=== PATIENT | female | born 1975 | race Caucasian/White ===

== ENCOUNTER 2017-07-22 18:52 | Observation (INO) ==
[2017-07-22 20:10] LABS: Bilirubin,Urine Small (Negative); Blood,Urine Negative (Negative); Clarity,Urine Cloudy (Clear); Color,Urine Dark Yellow (Yellow); Glucose,Urine (UA) Normal (Normal); Ketones,Urine Negative (Negative); Leukocyte Esterase,Urine Negative (Negative); Nitrite,Urine Negative (Negative); PH,Urine 5.5 pH Units (5.0-8.0); Protein,Urine Negative (Neg-Trace); Specific Gravity,Urine 1.021 (1.010-1.025); Urobilinogen,Urine Normal (Normal)
--- NOTE | 2017-07-22 20:10 | Emergency Department Note ---
Disposition Clinical Impression: Suicidal ideation, Illicit drug use, History of seizure Disposition: Admitted As Inpatient Condition: Good Referrals: NONE,PCP [Primary Care Provider] - Forms: ED Satisfaction Letter Psych HPI - General Chief Complaint: ED Psychiatric Symptoms Stated Complaint: psych eval,SI, "thrush" Time Seen by Provider: 07/22/17 19:42 Source: patient Mode of arrival: ambulatory Limitations: no limitations Nursing Notes Reviewed: Yes Vital Signs Reviewed: Yes - History of Present Illness HPI Narrative: Patient presents today for evaluation of suicidal thoughts. Patient states she has been having worsening suicidal thoughts. Patient states she was sitting on the railroad tracks itching for a train. She states that she was going to try to find a gun to "blow her brains out". Patient states that she has no concept of what time it is or when the last time she ate or when the last time she used heroin was. - Related Data Home Medications Medication Instructions Recorded Confirmed Ibuprofen 05/21/15 05/21/15 Gabapentin [Neurontin] 08/12/15 Quetiapine Fumarate [Seroquel] 08/12/15 diazePAM [Valium] 08/12/15 Effexor 10/07/15 Remeron 10/07/15 Vivitrol 10/07/15 10/07/15 Previous Rx's Medication Instructions Recorded Hydrocodone/Acetaminophen [[place] 1 each PO Q4H PRN #10 tablet 05/21/15 5-325 Tablet] Acyclovir [Zovirax] 800 mg PO 5XD #35 tablet 08/12/15 Hydrocodone/Acetaminophen [[place] 1 each PO Q4H PRN #10 tablet 08/12/15 5-325 Tablet] Mupirocin [Bactroban Oint] 1 appl TP BID #30 g 08/12/15 Triamcinolone Acet 0.1% CRM 1 appl TP BID #30 g 08/12/15 [Kenalog] predniSONE [Prednisone] 40 mg PO DAILY #10 tablet 08/12/15 Meclofenamate Sodium 50 mg PO QID PRN #20 capsule 10/07/15 Amoxicillin/Clavulanate [Augmentin] 875 mg PO BIDWM #14 tablet 05/28/16 Sulfamethoxazole/Trimeth DS 1 each PO BID #14 tablet 05/28/16 [Bactrim DS] Doxycycline 100 mg PO DAILY #10 capsule 10/26/16 cephALEXin [Keflex] 500 mg PO BID #20 capsule 10/26/16 Malathion [Ovide] 59 ml TP ONCE #59 ml 01/28/17 Malathion [Ovide] 59 ml TP ONCE #59 ml 02/07/17 hydrOXYzine pamoate [HydrOXYzine 25 mg PO TID PRN #30 capsule 02/07/17 Pamoate] predniSONE [PredniSONE] 10 - 60 mg PO DAILY #42 tablet 02/07/17 Allergies Allergy/AdvReac Type Severity Reaction Status Date / Time Opioids - Morphine Analogues Allergy Rash Verified 05/04/17 19:24 All systems ED: reviewed and negative except as stated. Constitutional: Denies: fever, chills Cardiovascular: Denies: chest pain Respiratory: Denies: cough, dyspnea Gastrointestinal: Denies: abdominal pain, nausea, vomiting Genitourinary: Denies: urgency, dysuria Neurological: Denies: headache Psychiatric: Reports: anxiety, depression, suicidal thoughts Past Medical History - Past Medical History Medical history: Reports: non-contributory Psychiatric history: Reports: anxiety, bipolar, depression, panic disorder ANIME ARTIST history: Reports: no ANIME ARTIST history - Social History Smoking Status: Current every day smoker Smokeless Tobacco Status: No Alcohol use: Reports: none Drug use: Reports: none Physical Exam General appearance: NAD, conversant Eyes: anicteric sclerae, moist conjunctivae; no lid-lag; PERRL HENT: Atraumatic; oropharynx clear with moist mucous membranes Neck: Normal appearance; Trachea midline Chest: Symmetrical chest rise; No respiratory distress Extremities: No peripheral edema or extremity tenderness Skin: Normal temperature, turgor and texture; no rash, ulcers or subcutaneous nodules Psych: Anxious Neuro: Awake and alert - General Limitations: no limitations General appearance: alert, in no apparent distress Course - Reevaluation(s) Reevaluation #1: Discussed with the patient who states that she does not have any signs or symptoms of withdrawal. She does not believe she is relapsed long enough to go through withdrawal symptoms. She normally feels with seizures happening and does not feel this way at this time. Patient is resting comfortably in bed. - Consultations Consultation #1: 1A evaluated the patient at bedside and discussed with psychiatry. The patient will need further evaluation with in the hospital secondary to the patient's recent drug use with inability to tell us what she took or when. She states she does have a seizure history from previous trauma. Last seizure was 2 days ago. Consultation #2: Discussed with hospitalist for admission for detox and observation prior to 1A admission. This time the patient is not withdrawing and they recommend further discussion with psychiatry for psychiatric admission as her primary complaint suicidal ideation and she does not have any signs of withdrawal at this time. Consultation #3: Discussed with psychiatrist, he feels patient needs medical admission because we do not know enough about her overall drug use as well as seizure history and status to know that she can be in an unmonitored bed without an IV on the psychiatric floor. We discussed the case with the hospitalist who accepts the patient for admission. Vital Signs Temperature 98.5 F 07/22/17 18:54 Pulse Rate 83 07/22/17 18:54 Respiratory Rate 18 07/22/17 18:54 Blood Pressure 110/57 07/22/17 18:54 O2 Sat by Pulse Oximetry 97 07/22/17 18:54 Temperature 98.5 F 07/22/17 18:54 Pulse Rate 83 07/22/17 18:54 Respiratory Rate 18 07/22/17 18:54 Blood Pressure 110/57 07/22/17 18:54 O2 Sat by Pulse Oximetry 97 07/22/17 18:54 Oxygen Delivery Oxygen Delivery Room Air Psych - Lab Data Result diagrams: 07/22/17 20:20 07/22/17 20:20 Lab Results 07/22/17 07/22/17 07/22/17 Range/Units 19:29 19:29 19:29 WBC (4.3-11.1) K/mcL RBC (3.82-4.97) M/mcL Hgb (11.5-15.4) g/dL Hct (35.3-44.9) % MCV (83.0-100.0) fL MCH (28.0-33.3) pg MCHC (31.6-35.5) g/dL RDW (11.5-14.5) % Plt Count (140-400) K/mcL MPV (9.4-12.4) fL Immature Gran % (0-4) % Seg Neutrophils % % Lymphocytes % % Monocytes % % Eosinophils % % Basophils % % Neutrophils # (1.6-8.9) K/mcL Lymphocytes # (0.6-4.6) K/mcL Monocytes # (0.0-1.3) K/mcL Eosinophils # (0.0-0.6) K/mcL Basophils # (0.0-0.2) K/mcL Sodium (136-145) mEq/L Potassium (3.5-5.1) mEq/L Chloride (98-107) mEq/L Carbon Dioxide (23-29) mEq/L BUN (6-20) mg/dL Creatinine (0.60-1.20) mg/dL Est GFR ( Amer) (> 60) Est GFR (Non-Af Amer) (> 60) BUN/Creatinine Ratio (6-26) Glucose (70-105) mg/dL Calculated Osmolality (280-300) Calcium (8.6-10.3) mg/dL Total Bilirubin (0.3-1.0) mg/dL Direct Bilirubin (0.0-0.2) mg/dL Indirect Bilirubin (0.0-1.2) mg/dL AST (13-39) Units/L ALT (7-52) Units/L Alkaline Phosphatase (34-104) Units/L Serum Total Protein (6.4-8.9) g/dL Albumin (3.5-5.7) g/dL Globulin (2.4-3.5) g/dL Albumin/Globulin Ratio (1.1-2.2) TSH (0.340-5.600) mcIU/mL Urine Color Dark Yellow (Yellow) Urine Clarity Cloudy A (Clear) Urine pH 5.5 (5.0-8.0) pH Units Ur Specific [place] 1.021 (1.010-1.025) Urine Protein Negative (Neg-Trace) mg/dL Urine Glucose (UA) Normal (Normal) mg/dL Urine Ketones Negative (Negative) mg/dL Urine Blood Negative (Negative) Urine Nitrite Negative (Negative) Urine Bilirubin Small H (Negative) Urine Urobilinogen Normal (Normal) mg/dL Ur Leukocyte Esterase Negative (Negative) Urine Microscopic RBC 0-3 (0-3) per hpf Urine Microscopic WBC 3-5 H (0-3) per hpf Ur Squamous Epith Cells Many H (None-Few) per lpf Urine Bacteria None Seen (None-Few) per hpf Hyaline Casts None Seen (None-Few) per lpf Urine Mucus Few (Few) Urine Test Negative (Negative) Salicylates (15.0-30.0) mg/dL Urine Opiates Screen Positive H (Myssan=108) ng/mL Acetaminophen (10-30) mcg/mL Ur Barbiturates Screen Negative (Mncmza=910) ng/mL Ur Phencyclidine Scrn Negative (Cutoff=25) ng/mL Ur Amphetamines Screen Positive H (Sdvcrm=2261) ng/mL U Benzodiazepines Scrn Positive H (Yfekev=642) ng/mL Urine Cocaine Screen Positive H (Cutoff= 300) ng/mL U Marijuana (THC) Screen Positive H (Cutoff = 50) ng/mL Ethyl Alcohol (0-10) mg/dL 07/22/17 07/22/17 Range/Units 20:20 20:20 WBC 7.4 (4.3-11.1) K/mcL RBC 4.65 (3.82-4.97) M/mcL Hgb 14.2 (11.5-15.4) g/dL Hct 42.0 (35.3-44.9) % MCV 90.3 (83.0-100.0) fL MCH 30.5 (28.0-33.3) pg MCHC 33.8 (31.6-35.5) g/dL RDW 13.7 (11.5-14.5) % Plt Count 183 (140-400) K/mcL MPV 10.6 (9.4-12.4) fL Immature Gran % 0.1 (0-4) % Seg Neutrophils % 47.3 % Lymphocytes % 39.5 % Monocytes % 9.6 % Eosinophils % 3.2 % Basophils % 0.3 % Neutrophils # 3.5 (1.6-8.9) K/mcL Lymphocytes # 2.9 (0.6-4.6) K/mcL Monocytes # 0.7 (0.0-1.3) K/mcL Eosinophils # 0.2 (0.0-0.6) K/mcL Basophils # 0.0 (0.0-0.2) K/mcL Sodium 136 (136-145) mEq/L Potassium 3.4 L (3.5-5.1) mEq/L Chloride 104 (98-107) mEq/L Carbon Dioxide 26 (23-29) mEq/L BUN 7 (6-20) mg/dL Creatinine 0.58 L (0.60-1.20) mg/dL Est GFR ( Amer) > 60 (> 60) Est GFR (Non-Af Amer) > 60 (> 60) BUN/Creatinine Ratio 12 (6-26) Glucose 95 (70-105) mg/dL Calculated Osmolality 280 (280-300) Calcium 8.8 (8.6-10.3) mg/dL Total Bilirubin 0.7 (0.3-1.0) mg/dL Direct Bilirubin 0.2 (0.0-0.2) mg/dL Indirect Bilirubin 0.5 (0.0-1.2) mg/dL AST 33 (13-39) Units/L ALT 17 (7-52) Units/L Alkaline Phosphatase 49 (34-104) Units/L Serum Total Protein 7.4 (6.4-8.9) g/dL Albumin 3.9 (3.5-5.7) g/dL Globulin 3.5 (2.4-3.5) g/dL Albumin/Globulin Ratio 1.1 (1.1-2.2) TSH 1.195 (0.340-5.600) mcIU/mL Urine Color (Yellow) Urine Clarity (Clear) Urine pH (5.0-8.0) pH Units Ur Specific [place] (1.010-1.025) Urine Protein (Neg-Trace) mg/dL Urine Glucose (UA) (Normal) mg/dL Urine Ketones (Negative) mg/dL Urine Blood (Negative) Urine Nitrite (Negative) Urine Bilirubin (Negative) Urine Urobilinogen (Normal) mg/dL Ur Leukocyte Esterase (Negative) Urine Microscopic RBC (0-3) per hpf Urine Microscopic WBC (0-3) per hpf Ur Squamous Epith Cells (None-Few) per lpf Urine Bacteria (None-Few) per hpf Hyaline Casts (None-Few) per lpf Urine Mucus (Few) Urine Test (Negative) Salicylates < 5.0 L (15.0-30.0) mg/dL Urine Opiates Screen (Zbaxpt=447) ng/mL Acetaminophen < 1.0 L (10-30) mcg/mL Ur Barbiturates Screen (Gtwfjy=677) ng/mL Ur Phencyclidine Scrn (Cutoff=25) ng/mL Ur Amphetamines Screen (Gexajz=1982) ng/mL U Benzodiazepines Scrn (Ngkqbu=575) ng/mL Urine Cocaine Screen (Cutoff= 300) ng/mL U Marijuana (THC) Screen (Cutoff = 50) ng/mL Ethyl Alcohol < 10 (0-10) mg/dL Psychiatric Medical Clearance - Medical Clearance Checklist Medical History: Abscess of skin or subcutaneous tissue (Inactive) Abscess of skin or subcutaneous tissue (Inactive) Cellulitis (Inactive) Dental caries (Inactive) Dermatitis due to plants, including poison francesca, sumac, and oak (Inactive) Facial cellulitis (Inactive) Head lice (Inactive) Head lice (Inactive) Herpes zoster (Inactive) Lice (Inactive) Opiate overdose (Inactive) Pelvic pain (Inactive) Seborrheic dermatitis (Inactive) Substance abuse (Inactive) Toothache (Inactive) No Social History Section defined Current Vitals: Last Vital Signs Temp 98.5 F 07/22/17 18:54 Pulse 83 07/22/17 18:54 Resp 18 07/22/17 18:54 BP 110/57 07/22/17 18:54 Pulse Ox 97 07/22/17 18:54 Psychiatric Lab Panel: Drug Levels and Toxicity 07/22/17 07/22/17 19:29 20:20 Urine Opiates Screen Positive H Acetaminophen < 1.0 L Ur Barbiturates Screen Negative Ur Phencyclidine Scrn Negative Ur Amphetamines Screen Positive H U Benzodiazepines Scrn Positive H Urine Cocaine Screen Positive H U Marijuana (THC) Screen Positive H Ethyl Alcohol < 10 Abnormal Labs: Abnormal lab results Potassium 3.4 mEq/L (3.5-5.1) L 07/22/17 20:20 Creatinine 0.58 mg/dL (0.60-1.20) L 07/22/17 20:20 Urine Clarity Cloudy (Clear) A 07/22/17 19:29 Urine Bilirubin Small (Negative) H 07/22/17 19:29 Urine Microscopic WBC 3-5 per hpf (0-3) H 07/22/17 19:29 Ur Squamous Epith Cells Many per lpf (None-Few) H 07/22/17 19:29 Salicylates < 5.0 mg/dL (15.0-30.0) L 07/22/17 20:20 Urine Opiates Screen Positive ng/mL (Avtlon=148) H 07/22/17 19:29 Acetaminophen < 1.0 mcg/mL (10-30) L 07/22/17 20:20 Ur Amphetamines Screen Positive ng/mL (Esathp=4233) H 07/22/17 19:29 U Benzodiazepines Scrn Positive ng/mL (Wzzqov=603) H 07/22/17 19:29 Urine Cocaine Screen Positive ng/mL (Cutoff= 300) H 07/22/17 19:29 U Marijuana (THC) Screen Positive ng/mL (Cutoff = 50) H 07/22/17 19:29 Statement of Medical Clearance: I have evaluated the patient, reviewed diagnostic information, and certify that the patient's medical condition is sufficiently stable that transfer to the psychiatric unit does not pose a significant risk of deterioration. Attestation Statement - Attestation Attestation: I, Marco A Raymond MD, personally evaluated this patient and discussed their management with the resident physician. I reviewed the resident's note and agree with the documented findings, medical decision making, and plan of care. 42-year-old female presents to the emergency department with a complaint of suicidal ideation. Patient has a history of psychiatric issues. Patient is very anxious and tearful. He states that she went to her ex-'s to get a gun and blow her brains out because she could not find a rope to hang herself. She is actively suicidal and states that she just wants to . She also has a history of active drug abuse and injects heroin primarily. She also admits to smoking crack cocaine but states it is not her drug of choice. She admits to having some visual hallucinations. On examination the patient is well-developed well-nourished female in no acute distress. She is very anxious and tearful. There is no cyanosis or diaphoresis. Head is atraumatic. Breath sounds are clear and equal bilaterally. Heart regular rate and rhythm. Abdomen soft and nontender with normal bowel sounds. No gross focal neurological deficits. Labs reviewed. Tox screen positive for opiates, cocaine, amphetamines, benzodiazepines, and marijuana. Alcohol negative. [address] psychiatry service was consulted to evaluate patient in the emergency department. Patient was seen and evaluated by the psychiatry service and the psychiatrist recommended medical admission due to the patient's multiple drugs in her system and concern for withdrawal and seizures as she apparently has a history of seizures. The hospitalist, Dr. Smith, was consulted and accepted admission of the patient.
[2017-07-22 20:13] LABS: Amphetamine Screen,Urine Positive ng/mL (Cutoff=1000); Bacteria,Urine None Seen per hpf (None-Few); Barbiturate Screen,Urine Negative ng/mL (Cutoff=200); Benzodiazepines Screen,Urine Positive ng/mL (Cutoff=200); Cannabinoid Screen,Urine Positive ng/mL (Cutoff = 50); Cocaine Screen,Urine Positive ng/mL (Cutoff= 300); Opiate Screen,Urine Positive ng/mL (Cutoff=300); Phencyclidine Screen,Urine Negative ng/mL (Cutoff=25); Squamous Epithelial Cell,Urine Many per lpf (None-Few)
[2017-07-22 20:25] LABS: Hyaline Casts,Urine None Seen per lpf (None-Few)
[2017-07-22 20:26] LABS: Mucus,Urine Few (Few); RBC,Urine 0-3 per hpf (0-3)
[2017-07-22 20:34] LABS: Basophils % 0.3 %; Eosinophils # 0.2 K/mcL (0.0-0.6); Eosinophils % 3.2 %; Hemoglobin 14.2 g/dL (11.5-15.4); Immature Granulocytes % 0.1 % (0-4); Lymphocytes # 2.9 K/mcL (0.6-4.6); Lymphocytes % 39.5 %; Mean Corpuscular HGB Conc 33.8 g/dL (31.6-35.5); Mean Corpuscular Hemoglobin 30.5 pg (28.0-33.3); Mean Corpuscular Volume 90.3 fL (83.0-100.0); Mean Platelet Volume 10.6 fL (9.4-12.4); Monocytes # 0.7 K/mcL (0.0-1.3); Monocytes % 9.6 %; Neutrophils # 3.5 K/mcL (1.6-8.9); Platelet Count 183 K/mcL (140-400); Red Blood Count 4.65 M/mcL (3.82-4.97); Red Cell Distribution Width 13.7 % (11.5-14.5); Segmented Neutrophils % 47.3 %
[2017-07-22 20:49] LABS: Alanine Aminotransferase 17 Units/L (7-52); Albumin 3.9 g/dL (3.5-5.7); Albumin/Globulin Ratio 1.1 (1.1-2.2); Alkaline Phosphatase 49 Units/L (34-104); Aspartate Amino Transferase 33 Units/L (13-39); BUN/Creatinine Ratio 12 (6-26); Bilirubin,Direct 0.2 mg/dL (0.0-0.2); Bilirubin,Indirect 0.5 mg/dL (0.0-1.2); Bilirubin,Total 0.7 mg/dL (0.3-1.0); Blood Urea Nitrogen 7 mg/dL (6-20); Calcium 8.8 mg/dL (8.6-10.3); Carbon Dioxide 26 mEq/L (23-29); Chloride 104 mEq/L (98-107); Globulin 3.5 g/dL (2.4-3.5); Glucose 95 mg/dL (70-105); Osmolality,Calculated 280 (280-300); Potassium 3.4 mEq/L (3.5-5.1); Sodium 136 mEq/L (136-145); Total Protein 7.4 g/dL (6.4-8.9); eGFR For African Americans > 60 (> 60); eGFR For Non-African Americans > 60 (> 60)
[2017-07-22 20:53] LABS: Acetaminophen < 1.0 mcg/mL (10-30); Ethanol < 10 mg/dL (0-10); Salicylate < 5.0 mg/dL (15.0-30.0)
[2017-07-22 21:08] LABS: Thyroid Stimulating Hormone 1.195 mcIU/mL (0.340-5.600)
[2017-07-23] MEDS ORDERED: 0.9 % Sodium Chloride 1,000 ML IVC ONE (04:27)
[2017-07-23] MEDS ORDERED: Acetaminophen 325 MG TABLET PO PRN (05:07)
[2017-07-23] MEDS ORDERED: Naloxone 0.4 MG/ML INJ IVP PRN (05:07)
--- NOTE | 2017-07-23 05:22 | Internal Med History&Physical ---
Date of Encounter: 07/23/17 Time of Encounter: 04:20 Assessment and Plan (1) Suicidal ideation Current visit: Yes Status: Acute 1. 24 hour sitter. 2. Suicide precautions. 3. Consult psychiatry. (2) Illicit drug use Current visit: Yes Status: Acute 1. Monitor EKG, telemetry, Vitals, and clinical exam. 2. Patient has periods of "being clean". She would like to follow with her PCP and counselor and continue treatment for her addictions. 3. Monitor for any hemodynamic instability. BP currently borderline low. (3) DVT prophylaxis Current visit: Yes Status: Acute 1. Heparin SQ. Internal Medicine - H&P: HPI Chief complaint: overdose; suicide attempt Admitted From: Emergency Dept Plans for Post Hospital Care: Home History of present illness: Ms. Nunez is a 42 year old female who presents to ER with complaints of suicidal thoughts, hallucinations, major depression, and suicide attempt. ER attempted to admit patient to the inpatient psychiatry unit, but they recommended admission to medicine with the psychiatry consult. Upon my assessment of the patient, she was sleeping but easily arousable. She is borderline hypotensive. She is not symptomatic with it however. She admits to trying to kill herself. She states she had a gun and was ready to "blow her brains out"; however, she could not figure out how to fire the gun. She also took multiple drugs off the street. She has been clean off all street drugs for last 9 months, but she relapsed this past week. As such, she was brought to the ER tonight with hopes of stabilizing her suicidal thoughts. She admits to hearing voices and seeing things that are not really there. In particular, she keeps hearing babies crying and often feels as though her son is still alive. Her son in 1996 from crib . She is seeking mental health and help, and she cannot tolerate these feelings anymore. Past Med Surg Social Fam HX - Past Medical History Attestation: Yes The following information was validated with the patient. Source: patient, old records reviewed Medical history: no medical history Psychiatric history: anxiety, bipolar, depression, panic disorder, prior suicide attempt - Past Surgical History Surgical History: no surgical history - Social History Smoking Status: Current every day smoker Smokeless Tobacco Status: No Alcohol use: none Drug use: cocaine, opiates, marijuana, methamphetamine, other Current living situation: Home, With Family Activity Level: Independent ambulation - Family History Mother Living Status: Hx Family Cardiac Disorders: Yes Father Living Status: Still Living Hx Family Endocrine Disorder: Yes (Diabetes) Internal Medicine - H&P: Meds Hydrocodone/Acetaminophen [[place] 5-325 Tablet] 1 each PO Q4H PRN #10 tablet 08/04 [Rx] Ibuprofen 05/21/15 [History] Acyclovir [Zovirax] 800 mg PO 5XD #35 tablet 08/12/15 [Rx] Gabapentin [Neurontin] 08/12/15 [History] Hydrocodone/Acetaminophen [[place] 5-325 Tablet] 1 each PO Q4H PRN #10 tablet [Rx] Mupirocin [Bactroban Oint] 1 appl TP BID #30 g 08/12/15 [Rx] Quetiapine Fumarate [Seroquel] 08/12/15 [History] Triamcinolone Acet 0.1% CRM [Kenalog] 1 appl TP BID #30 g 08/12/15 [Rx] diazePAM [Valium] 08/12/15 [History] predniSONE [Prednisone] 40 mg PO DAILY #10 tablet 08/12/15 [Rx] Effexor 10/07/15 [History] Meclofenamate Sodium 50 mg PO QID PRN #20 capsule 10/07/15 [Rx] Remeron 10/07/15 [History] Vivitrol 10/07/15 [History] Amoxicillin/Clavulanate [Augmentin] 875 mg PO BIDWM #14 tablet 05/28/16 [Rx] Sulfamethoxazole/Trimeth DS [Bactrim DS] 1 each PO BID #14 tablet 05/28/16 [Rx] Doxycycline 100 mg PO DAILY #10 capsule 10/26/16 [Rx] cephALEXin [Keflex] 500 mg PO BID #20 capsule 10/26/16 [Rx] Malathion [Ovide] 59 ml TP ONCE #59 ml 01/28/17 [Rx] Malathion [Ovide] 59 ml TP ONCE #59 ml 02/07/17 [Rx] hydrOXYzine pamoate [HydrOXYzine Pamoate] 25 mg PO TID PRN #30 capsule 02/07/17 [Rx] predniSONE [PredniSONE] 10 - 60 mg PO DAILY #42 tablet 02/07/17 [Rx] 3 Allergy/AdvReac Type Severity Reaction Status Date / Time Opioids - Morphine Analogues Allergy Rash Verified 05/04/17 19:24 - Constitutional Constitutional: no chills, no fever(s) - EENT Eyes: no blurry vision, no change in vision Ears: no ear pain, no tinnitus Nose, mouth and throat: no sinus pressure, no sore throat - Cardiovascular Cardiovascular ROS IM: no chest pain, no dyspnea, no dyspnea on exertion, no palpitations, no paroxysmal nocturnal dyspnea - Respiratory Respiratory: no cough, no dyspnea, no hemoptysis, no excessive phlegm production - Gastrointestinal Gastrointestinal: no abdominal pain, no diarrhea, no nausea, no vomiting - Genitourinary Genitourinary: no dysuria, no flank pain, no hematuria - Musculoskeletal Musculoskeletal ROS IM: no arthralgias, no back pain - Integumentary Integumentary IM: no rash, no jaundice - Neurological Neurological ROS: no dizziness, no focal weakness, no frequent falls, no headache(s) - Psychiatric Psychiatric: change in appetite, depression, hallucinations, hopelessness, suicidal ideation - Endocrine Endocrine IM: no polydipsia, no polyuria - Hematologic/Lymphatic Hematologic/Lymphatic: no easy bruising, no lymphadenopathy - Allergic/Immunologic Allergic/Immunologic: no wheezing, no GI upset with certain foods - Constitutional Vitals: Temp Pulse Resp BP Pulse Ox 98.1 F 66 15 93/49 93 07/23/17 04:14 07/23/17 04:14 07/23/17 04:14 07/23/17 04:14 07/23/17 04:14 General appearance: Present: cooperative, disheveled, A&O X 3, pleasant, no acute distress Exam: depressed; flat affect - Head Head exam: Present: atraumatic, normal inspection - Eye Eye exam: Present: EOMI, PERRL. Absent: scleral icterus Pupils: Present: normal accommodation - ENT ENT exam: Present: mucous membranes dry, normal exam - Neck Neck exam general surgery: Present: full ROM, supple. Absent: tenderness, nuchal rigidity - Expanded Neck Exam Neck exam: Absent: carotid bruit - Respiratory Respiratory exam: Present: chest wall tenderness, CTAB. Absent: stridor - Cardiovascular Cardiovascular exam: Present: RRR, +S1, +S2. Absent: diastolic murmur, systolic murmur - GI/Abdominal GI/Abdominal exam: Present: soft. Absent: hepatomegaly, splenomegaly, tenderness - Extremities Exam Extremities exam: Present: full ROM, normal capillary refill, warm, radial pulses palpable and symmetrical. Absent: calf tenderness, joint swelling, pedal edema - Back Exam Back exam: Absent: CVA tenderness (L), CVA tenderness (R) - Neurological Exam Neurological exam: Present: alert, CN II-XII intact, oriented X3, no focal deficits - Psychiatric Psychiatric exam: Present: depressed, flat affect, suicidal ideation - Skin Skin exam: Present: dry, warm. Absent: rash Internal Med - H&P Results - Labs CBC & Chem 7: 07/22/17 20:20 07/22/17 20:20 - EKG Data -: EKG Interpreted by Myself EKG shows normal: sinus rhythm - EKG Data Prior EKG available for review: yes When compared to previous EKG: there is no significant change EKG comments: 07/23/17 05:26 NSR; no acute changes
[2017-07-23] MEDS: *HR* Heparin 5,000 UNIT/ML VIAL SQ SCH ×2 (06:23→18:26)
[2017-07-23] MEDS: 0.9 % Sodium Chloride 1,000 ML IVC SCH ×2 (06:24→18:54)
--- NOTE | 2017-07-23 12:34 | Internal Med Progress Note ---
Date of Encounter: 07/23/17 Time of Encounter: 12:32 - Assessment and plan (1) Suicidal ideation Current Visit: Yes Status: Acute Assessment and plan: Consult psychiatry Sitter one-on-one (2) Polysubstance abuse Current Visit: Yes Status: Acute Assessment and plan: Positive for cocaine, opiates, amphetamines, benzodiazepines and marijuana (3) Tobacco abuse Current Visit: Yes Status: Acute Assessment and plan: Smoking cessation counseling, nicotine patch (4) History of seizure Current Visit: Yes Status: Acute (5) Illicit drug use Current Visit: Yes Status: Acute - Subjective Interval history: Depressed, denies any chest pain, shortness of breath, no abdominal pain, no dysuria, no fevers overnight - Constitutional Vitals: Temp Pulse Resp BP Pulse Ox 98.1 F 88 15 128/86 98 07/23/17 11:28 07/23/17 11:28 07/23/17 11:28 07/23/17 11:28 07/23/17 11:28 General appearance: Present: cooperative, disheveled, A&O X 3, pleasant, no acute distress - Head Head exam: Present: atraumatic, normocephalic - Eye Eye exam: Present: PERRL, conjuntiva pink, sclera anicteric Pupils: Present: PERRL - Neck Neck exam general surgery: Present: supple, trachea midline. Absent: lymphadenopathy - Respiratory Respiratory exam: Present: CTAB. Absent: accessory muscle use, rales, rhonchi, wheezes - Cardiovascular Cardiovascular exam: Present: RRR, +S1, +S2. Absent: diastolic murmur, gallop, rubs, systolic murmur - GI/Abdominal GI/Abdominal exam: Present: normal bowel sounds, soft, no peritoneal signs. Absent: distended, tenderness - Extremities Exam Extremities exam: Present: warm, radial pulses palpable and symmetrical. Absent : calf tenderness, cyanotic, pedal edema - Neurological Exam Neurological exam: Present: CN II-XII intact, oriented X3, no focal deficits. Absent: pronater drift, facial droop, speech deficit - Skin Skin exam: Present: dry, intact Internal Medicine: Result - Labs CBC & Chem 7: 07/22/17 20:20 07/22/17 20:20 Consult Discharge Plan - Plan Referrals: NONE,PCP [Primary Care Provider] -
[2017-07-23] MEDS: Nicotine 14 MG PATCH.TD24 TD SCH (15:34)
[2017-07-23] MEDS: Gabapentin 300 MG CAPSULE PO SCH ×2 (16:02→20:00)
[2017-07-24 05:06] LABS: Basophils % 0.2 %; Eosinophils # 0.1 K/mcL (0.0-0.6); Eosinophils % 2.2 %; Hemoglobin 12.9 g/dL (11.5-15.4); Immature Granulocytes % 0.2 % (0-4); Lymphocytes # 2.1 K/mcL (0.6-4.6); Lymphocytes % 45.2 %; Mean Corpuscular HGB Conc 33.9 g/dL (31.6-35.5); Mean Corpuscular Hemoglobin 30.6 pg (28.0-33.3); Mean Platelet Volume 11.2 fL (9.4-12.4); Monocytes # 0.4 K/mcL (0.0-1.3); Monocytes % 9.5 %; Platelet Count 152 K/mcL (140-400); Red Blood Count 4.22 M/mcL (3.82-4.97); Red Cell Distribution Width 13.8 % (11.5-14.5); Segmented Neutrophils % 42.7 %
[2017-07-24 05:27] LABS: Alanine Aminotransferase 12 Units/L (7-52); Albumin 2.9 g/dL (3.5-5.7); Alkaline Phosphatase 46 Units/L (34-104); Aspartate Amino Transferase 19 Units/L (13-39); BUN/Creatinine Ratio 11 (6-26); Bilirubin,Total 0.3 mg/dL (0.3-1.0); Blood Urea Nitrogen 7 mg/dL (6-20); Carbon Dioxide 21 mEq/L (23-29); Chloride 115 mEq/L (98-107); Globulin 2.9 g/dL (2.4-3.5); Glucose 101 mg/dL (70-105); Osmolality,Calculated 290 (280-300); Potassium 4.1 mEq/L (3.5-5.1); Sodium 141 mEq/L (136-145); Total Protein 5.8 g/dL (6.4-8.9); eGFR For African Americans > 60 (> 60); eGFR For Non-African Americans > 60 (> 60)
[2017-07-24] MEDS: 0.9 % Sodium Chloride 1,000 ML IVC SCH (05:51)
[2017-07-24] MEDS: *HR* Heparin 5,000 UNIT/ML VIAL SQ SCH (05:51)
[2017-07-24 08:10] VITALS: BP 129/84
[2017-07-24] MEDS ORDERED: traMADol 50 MG TABLET PO PRN (08:29)
[2017-07-24] MEDS ORDERED: HydrOXYzine SYP 10 MG/5 ML UDC PO PRN (08:29)
[2017-07-24] MEDS ORDERED: Methocarbamol 750 MG TABLET PO PRN (08:29)
[2017-07-24] MEDS ORDERED: diazePAM 5 MG TABLET PO PRN (08:36)
--- NOTE | 2017-07-24 08:41 | Discharge Summary ---
Date of Encounter: 07/24/17 Time of Encounter: 08:37 - Discharge Diagnosis (1) Suicidal ideation Priority: Primary Status: Acute (2) Polysubstance abuse Priority: Primary Status: Acute (3) Tobacco abuse Priority: Secondary Status: Acute (4) History of seizure Priority: Secondary Status: Acute Comments: Continue gabapentin (5) Illicit drug use Priority: Secondary Status: Acute - Discharge Medications Prescriptions: Tramadol HCl [Ultram] 100 mg PO TID PRN 7 Days #20 tab PRN Reason: Pain Home Medications: Quetiapine Fumarate [Seroquel] 300 mg PO HS 07/23/17 [History] diazePAM [Valium] 5 mg PO BID PRN 07/23/17 [History] lamoTRIgine [Lamictal] 25 mg PO BID 07/23/17 [History] DiphenhydraMINE [Benadryl] 25 mg PO Q6HR PRN #0 capsule 07/24/17 [Rx] Gabapentin [Neurontin] 800 mg PO TID 30 Days #90 capsule 07/24/17 [Rx] HydrOXYzine SYP [Atarax] 25 mg PO TID PRN udc 07/24/17 [Rx] Methocarbamol [Robaxin] 750 mg PO Q8HR PRN tablet 07/24/17 [Rx] Nicotine Patch [Nicoderm] 14 mg TD DAILY patch.td24 07/24/17 [Rx] Tramadol HCl [Ultram] 100 mg PO TID PRN 7 Days #20 tab 07/24/17 [Rx] Allergies/Adverse Reactions: 3 Allergy/AdvReac Type Severity Reaction Status Date / Time Opioids - Morphine Analogues Allergy Rash Verified 05/04/17 19:24 Procedures/tests Complete & Pending: Procedures Performed prior 72 hours Category Date Time Status ECG 12 lead ECG [ECG] AM 0600 Y 07/23/17 06:00 Ordered Date of admission: 07/23/17 00:30 Primary care physician: PCP NONE Consults: 07/23/17 01:58 Consult to Manager Fund [CONS] Routine Reason for SW Consult: Sucidal Ideation, Substance Abuse, Mental health issues 07/23/17 05:09 Consult to Physician [CONS] Routine Consulting Provider: Mahin Ortiz Reason for Consult: suicide attempt Call Completed: No - Patient Status Disposition: Transfer Psychiatric Hosp Condition: Good Overall status at discharge: patient is back to baseline - Discharge Instructions Follow Up With: NONE,PCP [Primary Care Provider] - Additional Instructions: Continue tramadol, Atarax, Benadryl, methocarbamol to treat opioid drawl symptoms - Diet and Activity Activity: increase activity as tolerated Diet: regular diet Hospital course: Ms. Nunez is a 42 year old female who presented to ER with complaints of suicidal thoughts, hallucinations, major depression, and suicide attempt. ER attempted to admit patient to the inpatient psychiatry unit, but they recommended admission to medicine with the psychiatry consult. The first day of her admission the patient was sleeping but easily arousable. She was borderline hypotensive. She admitted to trying to kill herself. She stated she had a gun and was ready to "blow her brains out"; however, she could not figure out how to fire the gun. She also took multiple drugs off the street. She has been clean off all street drugs for last 9 months, but she relapsed this past week. As such, she was brought to the ER with hopes of stabilizing her suicidal thoughts. She admits to hearing voices and seeing things that are not really there. In particular, she keeps hearing babies crying and often feels as though her son is still alive. Her son in 1996 from "crib ". EKG done showed T-wave inversions in leads V2-3 that have been present in prior EKGs mainly in V1 and V2 possibly due to lead positions. The patient denies any chest pain. Upon admission she was positive for marijuana, opioids, methamphetamines, benzodiazepines and cocaine. Was evaluated by the psychiatry unit and is a stable to be transferred today to continue psychiatric care. Time spent discussing smoking cessation with patient: 3 to 10 minutes - Time Spent with Patient Total time spent providing and/or coordinating discharge services: Greater than 30 minutes (40 min) - Constitutional Vitals: Temp Pulse Resp BP Pulse Ox 97.3 F L 88 18 129/84 97 07/24/17 08:09 07/24/17 08:09 07/24/17 08:09 07/24/17 08:09 07/24/17 08:09 General appearance: Present: cooperative, disheveled, A&O X 3, pleasant, no acute distress - Head Head exam: Present: atraumatic, normocephalic - Eye Eye exam: Present: PERRL, conjuntiva pink, sclera anicteric Pupils: Present: PERRL - Neck Neck exam general surgery: Present: supple, trachea midline. Absent: lymphadenopathy - Respiratory Respiratory exam: Present: CTAB. Absent: accessory muscle use, rales, rhonchi, wheezes - Cardiovascular Cardiovascular exam: Present: RRR, +S1, +S2. Absent: diastolic murmur, gallop, rubs, systolic murmur - GI/Abdominal GI/Abdominal exam: Present: normal bowel sounds, soft, no peritoneal signs. Absent: distended, tenderness - Extremities Exam Extremities exam: Present: warm, radial pulses palpable and symmetrical. Absent : calf tenderness, cyanotic, pedal edema - Neurological Exam Neurological exam: Present: CN II-XII intact, oriented X3, no focal deficits. Absent: pronater drift, facial droop, speech deficit - Skin Skin exam: Present: dry, intact
[2017-07-24] MEDS ORDERED: Gabapentin 400 MG CAPSULE PO SCH (09:00)
[2017-07-24] MEDS ORDERED: lamoTRIgine 25 MG TABLET PO SCH (09:00)
[2017-07-24] MEDS: Nicotine 14 MG PATCH.TD24 TD SCH (09:05)
--- NOTE | 2017-07-26 19:16 | Electrocardiograph Report ---
[address] [place] [address] Test Date: 2017-07-23 Pat Name: Judy Nunez Department: 104 Room: 3A25 Gender: F House Parent: HERNÁN : 1975 Requested By: Radu Carmen Order Number: [id number] Reading MD: Gage Patel MD Measurements Intervals [place] Rate: 60 P: 75 [place]: 152 QRS: 23 QRSD: 97 T: 47 QT: 407 QTc: 408 Interpretive Statements SINUS RHYTHM Electronically Signed On 07-26-2017 19:14:13 EST by Gage Patel MD
== END 2017-07-24 12:53 ==
LOC: EMEROO 18:52 → 3ANU 18:52
PROVIDERS: ADMIT Pediatrics; ATTEND Internal Medicine

== ENCOUNTER 2017-07-24 12:51 | Inpatient (IN) ==
[2017-07-24] MEDS ORDERED: traZODone 50 MG TABLET PO PRN (13:25)
[2017-07-24] MEDS ORDERED: Haloperidol Lactate 5 MG/ML VIAL IM PRN (13:25)
[2017-07-24] MEDS ORDERED: *HR* LORazepam 2 MG/ML VIAL IM PRN (13:25)
[2017-07-24] MEDS ORDERED: MOM Conc 10 ML UD.LIQ PO PRN (13:25)
[2017-07-24] MEDS ORDERED: *HR* LORazepam 1 MG TABLET PO PRN (13:25)
[2017-07-24] MEDS: diazePAM 2 MG TABLET PO SCH ×2 (14:53→20:21)
[2017-07-24] MEDS: Gabapentin 400 MG CAPSULE PO SCH ×2 (14:53→20:21)
[2017-07-24] MEDS: hydrOXYzine pamoate 25 MG CAPSULE PO PRN (20:21)
[2017-07-24] MEDS ORDERED: lamoTRIgine 25 MG TABLET PO SCH (21:00)
[2017-07-25] MEDS: Nicotine 21 MG PATCH.TD24 TD SCH (08:46)
[2017-07-25] MEDS: diazePAM 2 MG TABLET PO SCH ×3 (08:46→20:57)
[2017-07-25] MEDS: Gabapentin 400 MG CAPSULE PO SCH ×3 (08:46→20:57)
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
[2017-07-25] MEDS: Acetaminophen 325 MG TABLET PO PRN ×2 (14:07→21:00)
[2017-07-25] MEDS: hydrOXYzine pamoate 25 MG CAPSULE PO PRN (20:57)
[2017-07-25] MEDS: Mag Hydrox/Al Hydrox/Simeth 30 ML UDC PO PRN (20:58)
[2017-07-26] MEDS: Nicotine 21 MG PATCH.TD24 TD SCH (09:46)
[2017-07-26] MEDS: Gabapentin 400 MG CAPSULE PO SCH ×3 (09:46→20:34)
[2017-07-26] MEDS: diazePAM 2 MG TABLET PO SCH ×3 (09:47→20:34)
[2017-07-26] MEDS: Acetaminophen 325 MG TABLET PO PRN ×2 (09:49→19:34)
[2017-07-26] MEDS: traMADol 50 MG TABLET PO PRN ×3 (10:58→20:35)
--- NOTE | 2017-07-26 14:22 | Psychiatry Progress Note ---
Date of Encounter: 07/26/17 Time of Encounter: 14:10 Subjective Interval history: When asked the patient how she was doing she stated "a lot better". Earlier this morning she talked to me about feeling too medicated. "I felt like a vegetable just hanging around. I could not think, my motor skills had been slowed down." She asked for the dose to be lowered from 50 mg and 25 mg of Seroquel. She states that she finds effective but was 'too much'. I talked to her about the fact that she, as an outpatient, hadd been prescribed 100 mg of Seroquel. She told me that she had been biting bits and pieces of it off, not taking the full amount. Maybe she was not getting a full 50 mg 3 times a day as she thought when she was biting it off. She states that 50 mg at night will be helpful with her sleep. She states that she is also experiencing some muscle twitches with the medication. She feels like she has "restless legs" and her legs and in her arms. She states the Cogentin has helped with that. She did not know there was a medication to help with that. She requested to have Cogentin added routinely to help with those side effects. We talked about her substance abuse and the track bernard she has in her arms. She is going to be discharged from the unit and go directly to her provider and get her Vivitrol medication and start practicing sobriety again. She denies any active suicidal/homicidal ideation. Her mood is much stable. She denies any auditory or visual hallucinations. No nightmares. Objective: Exam Patient orientation: Yes Person, Yes Time, Yes Place, Yes Circumstance Level of alertness: Alert Patient appearance: Well Groomed, Thin Additional observations: Track tristan from IV drug use on her bilateral hands and wrist. Behavior: calm, cooperative Psychomotor activity: Normal Eye contact: Maintains Eye Contact Mood description: Euthymic/stable Affect description: congruent with mood Speech pattern: Normal rate, Normal rhythm, Normal tone Speech volume: Normal Thought process: Intact, Linear, Goal Oriented Thought content: Yes Intact Judgment: Fair Insight: Partial Results - Vital Signs Vital Signs: Temp Pulse Resp BP 97.0 F L 80 16 137/94 07/26/17 09:00 07/26/17 09:00 07/26/17 09:00 07/26/17 09:00 Assessment and Plan (1) PTSD (post-traumatic stress disorder) Current visit: Yes Status: Acute Risks, benefits, side effects, alternatives discussed w/pt: Yes (Decrease dose of Seroquel as it is causing sedation.) Patient agreeable to treatment: Yes (2) Opioid use disorder, severe, dependence Current visit: Yes Status: Acute Risks, benefits, side effects, alternatives discussed w/pt: Yes Patient agreeable to treatment: Yes Consult Discharge Plan - Plan Referrals: [facility] [Outside] - 07/27/17 2:30 pm (The above appointment is with Lisandra Ron for Vivitrol re-assessment and resumption of treatment. Due to 5 previous missed appointments, if you are unable to keep this appointment without providing 24-hour business hours notice, you will have to be seen for Vivitrol on a walk-in basis only.) [facility] - [facility]17 3:00 pm (The above appointment is with Maru Rajan for outpatient mental health and substance abuse counseling services. [facility] Transportation Services will take you to this appointment and bring you home when you are finished. You will also see Kym Márquez for outpatient psychiatric assessment and medication management services on 08/16/2017 at 3:30pm. [facility] Transportation Services will take you to this appointment and bring you home you are finished.) [facility] (The office is closed due to inclement weather. Referral has been made however. Scheduling staff will contact you directly with follow-up appointment when office reopens tomorrow.)
[2017-07-26] MEDS: Mag Hydrox/Al Hydrox/Simeth 30 ML UDC PO PRN (22:53)
[2017-07-27] MEDS: Acetaminophen 325 MG TABLET PO PRN (07:28)
[2017-07-27] MEDS: Nicotine 21 MG PATCH.TD24 TD SCH (08:07)
[2017-07-27] MEDS: Gabapentin 400 MG CAPSULE PO SCH (08:10)
[2017-07-27] MEDS: traMADol 50 MG TABLET PO PRN (08:11)
[2017-07-27] MEDS: diazePAM 2 MG TABLET PO SCH (08:11)
[2017-07-27 08:53] VITALS: BP 123/89
--- NOTE | 2017-07-27 11:40 | Discharge Summary ---
Date of Encounter: 07/27/17 Time of Encounter: 11:30 Diagnosis - Discharge Diagnosis (1) PTSD (post-traumatic stress disorder) Status: Acute (2) Opioid use disorder, severe, dependence Status: Acute Medications - Discharge Medications Prescriptions: Benztropine [Cogentin] 0.5 mg PO 0900,1500 7 Days #14 tablet Benztropine [Cogentin] 0.5 mg PO HS 7 Days #7 tablet diazePAM [Valium] 2 mg PO TID 7 Days #21 tablet hydrOXYzine pamoate [HydrOXYzine Pamoate] 25 mg PO TID PRN 7 Days #21 capsule PRN Reason: Anxiety Quetiapine Fumarate [Seroquel] 25 mg PO 0900,1500 7 Days #14 tablet Quetiapine Fumarate [Seroquel] 50 mg PO HS 7 Days #7 tablet Gabapentin [Neurontin] 800 mg PO TID 30 Days #90 capsule 07/24/17 [Rx] Methocarbamol [Robaxin] 750 mg PO Q8HR PRN tablet 07/24/17 [Rx] Tramadol HCl [Ultram] 100 mg PO TID PRN 7 Days #20 tab 07/24/17 [Rx] Benztropine [Cogentin] 0.5 mg PO 0900,1500 7 Days #14 tablet 07/27/17 [Rx] Benztropine [Cogentin] 0.5 mg PO HS 7 Days #7 tablet 07/27/17 [Rx] Quetiapine Fumarate [Seroquel] 25 mg PO 0900,1500 7 Days #14 tablet 07/27/17 [Rx ] Quetiapine Fumarate [Seroquel] 50 mg PO HS 7 Days #7 tablet 07/27/17 [Rx] diazePAM [Valium] 2 mg PO TID 7 Days #21 tablet 07/27/17 [Rx] hydrOXYzine pamoate [HydrOXYzine Pamoate] 25 mg PO TID PRN 7 Days #21 capsule [Rx] 3 Allergy/AdvReac Type Severity Reaction Status Date / Time Opioids - Morphine Analogues Allergy Rash Verified 05/04/17 19:24 Provider Date of admission: 07/24/17 12:51 Primary care physician: PCP NONE Assessment and Plan - Patient/Caregiver Discharge Instructions Activity: resume usual activities as tolerated Diet: regular diet - Follow up Plan Follow up with: [facility] [Outside] - 07/27/17 2:30 pm (The above appointment is with Lisandra Ron for Vivitrol re-assessment and resumption of treatment. Due to 5 previous missed appointments, if you are unable to keep this appointment without providing 24-hour business hours notice, you will have to be seen for Vivitrol on a walk-in basis only.) [facility] [Outside] - 07/29/17 3:00 pm (The above appointment is with Maru Rajan for outpatient mental health and substance abuse counseling services. [facility] Transportation Services will take you to this appointment and bring you home when you are finished. You will also see Kym Márquez for outpatient psychiatric assessment and medication management services on 08/16/2017 at 3:30pm. [facility] Transportation Services will take you to this appointment and bring you home you are finished.) [facility] [Outside] (The office is closed due to inclement weather. Referral has been made however. Scheduling staff will contact you directly with follow-up appointment when office reopens tomorrow.) Functional capacity at discharge: independent ambulation Overall status at discharge: Stable Disposition: Home, Self-Care Hospital Course Hospital course: Ms. Nunez is a 42 year old female he tells me today she is feeling great. She states she had a little trouble sleeping last night, which might have been the excitement of discharging today. She is going today to an appointment to give her Vivtrol shot. Her dad is picking her up and transporting her to make sure that it happens. She states her mood is much more stable. She states that she is not feeling depressed. She did not know that using drugs would make her feel depressed. She states that in all her treatment in the past, she has "never caught on" via any of her providers explaining to her that the drugs cause problems with her mood. She states that she wants to stay clean and will stay away from the drugs. She will continue to heal from her mother's and other stress/grief in her life. She denies any auditory or visual hallucinations. She denies any nightmares. She states the Cogentin still does a great job in getting rid of her muscle twitches. We talk about her being tapered off of the Valium. She states that she is nervous about being off of it altogether. I told her she was a 50% dose now as to prior to when she was admitted and she is doing great. The Seroquel and other medications adjustments will help stabilize er mood as she is tapered off and will not need the medication any longer. She will get a seven-day supply of her medications. She has a follow-up with the provider in 3 which will give her time to get those prescriptions filled and not run out of medication. She thanks me for help in taking care of her. She denies any suicidal/homicidal ideation. Time spent discussing smoking cessation with patient: 3 to 10 minutes Does patient wish to continue nicotine replacement upon disc: No - Time Spent with Patient Total time spent providing and/or coordinating discharge services: 25 min Less than 30 minutes Quality - Multiple Antipsychotics Patient discharged on 2 or more antipsychotic medications: No Procedures - Procedures Procedures: Medication Management, Crisis Stabilization, Supportive Therapy, Group Therapy, Psychoeducational Therapy Mental Status Exam - Mental Status Exam Patient orientation: Yes Person, Yes Time, Yes Place, Yes Circumstance Patient appearance: Appropriate, Well Groomed, Thin Behavior: calm Psychomotor activity: Normal Eye contact: Maintains Eye Contact Mood description: Euthymic/stable Patient description of mood: better Affect description: congruent with mood Speech pattern: Normal rate, Normal rhythm, Normal tone, Rambling Speech Volume: Normal Thought process: Intact, Linear, Goal Oriented Thought Content: Yes Intact Judgment: Fair Insight: Partial
== END 2017-07-27 14:00 | disposition home or self-care (01) | DRG 755 ==
LOC: 1ANU 12:51
PROVIDERS: ADMIT Psychiatry & Neurology Psychiatry; ATTEND Psychiatry & Neurology Psychiatry

== ENCOUNTER 2021-12-07 14:07 | Inpatient (IN) ==
[2021-12-07 14:49] LABS: Bacteria,Urine Few per hpf (None-Few); Bilirubin,Urine Small (Negative); Blood,Urine Trace (Negative); Clarity,Urine Turbid (Clear); Color,Urine Yellow (Yellow); Glucose,Urine (UA) Normal (Normal); Ketones,Urine Trace mg/dL (Negative); Leukocyte Esterase,Urine Large (Negative); Mucus,Urine Many per lpf (None-Few); Nitrite,Urine Negative (Negative); Protein,Urine 50 mg/dL (Neg-Trace); Squamous Epithelial Cell,Urine Moderate per hpf (None-Few)
[2021-12-07 14:56] LABS: Amphetamine Screen,Urine Positive ng/mL (Cutoff=1000); Barbiturate Screen,Urine Negative ng/mL (Cutoff=200); Benzodiazepines Screen,Urine Negative ng/mL (Cutoff=200); Cannabinoid Screen,Urine Positive ng/mL (Cutoff = 50); Cocaine Screen,Urine Negative ng/mL (Cutoff= 300); Opiate Screen,Urine Negative ng/mL (Cutoff=300); Phencyclidine Screen,Urine Negative ng/mL (Cutoff=25)
[2021-12-07 15:11] LABS: Basophils % 0.4 %; Eosinophils % 0.1 %; Hematocrit 50.4 % (35.3-44.9); Hemoglobin 16.7 g/dL (11.5-15.4); Immature Granulocytes % 0.1 % (0-4); Lymphocytes % 28.5 %; Mean Corpuscular HGB Conc 33.1 g/dL (31.6-35.5); Mean Corpuscular Hemoglobin 30.8 pg (28.0-33.3); Mean Platelet Volume 10.2 fL (9.4-12.4); Monocytes # 0.4 K/mcL (0.0-1.3); Monocytes % 5.4 %; Neutrophils # 4.6 K/mcL (1.6-8.9); Platelet Count 239 K/mcL (140-400); Red Blood Count 5.42 M/mcL (3.82-4.97); Red Cell Distribution Width 12.2 % (11.5-14.5); Segmented Neutrophils % 65.5 %; White Blood Count 7.1 K/mcL (4.3-11.1)
[2021-12-07 15:29] LABS: Estimated Average Glucose 114 mg/dl; Hemoglobin A1C 5.6 %
[2021-12-07 15:32] LABS: Acetaminophen < 10 mcg/mL (10-20); Alanine Aminotransferase 22 Units/L (7-52); Albumin 4.2 g/dL (3.5-5.7); Alkaline Phosphatase 70 Units/L (34-104); Aspartate Amino Transferase 26 Units/L (13-39); BUN/Creatinine Ratio 17 (6-26); Bilirubin,Direct 0.2 mg/dL (0.0-0.2); Bilirubin,Indirect 0.7 mg/dL (0.0-1.0); Bilirubin,Total 0.9 mg/dL (0.3-1.0); Blood Urea Nitrogen 16 mg/dL (6-20); Calcium 9.6 mg/dL (8.6-10.3); Carbon Dioxide 29 mEq/L (23-29); Chloride 102 mEq/L (98-107); Chol/HDL Ratio 3.2 (0-4.9); Cholesterol 161 mg/dL (< 200); Ethanol < 10 mg/dL (Less than 10); Globulin 4.1 g/dL (2.4-3.5); Glucose 107 mg/dL (70-105); HDL Cholesterol 50 mg/dL (40-59); LDL Cholesterol,Calculated 92 mg/dL (< 100); Osmolality,Calculated 290 (280-300); Potassium 4.1 mEq/L (3.5-5.1); Salicylate < 2.5 mg/dL (15.0-30.0); Sodium 139 mEq/L (136-145); Total Protein 8.3 g/dL (6.4-8.9); Triglycerides 94 mg/dL (< 150); eGFR For African Americans > 60 (> 60); eGFR For Non-African Americans > 60 (> 60)
[2021-12-07] MEDS ORDERED: cephALEXin 500 MG CAPSULE PO ONE ×2 (15:38→18:00)
[2021-12-07 15:45] LABS: Thyroid Stimulating Hormone 0.601 mcIU/mL (0.340-5.600)
[2021-12-07] MEDS ORDERED: Acetaminophen 325 MG TABLET PO ONE (18:57)
[2021-12-07] MEDS ORDERED: haloperidoL 5 MG TABLET PO PRN (20:29)
[2021-12-07] MEDS ORDERED: MOM Conc 10 ML UD.LIQ PO PRN (20:29)
[2021-12-07] MEDS ORDERED: Haloperidol Lactate 5 MG/ML VIAL IM PRN (20:29)
[2021-12-07] MEDS ORDERED: *HR* LORazepam 2 MG/ML VIAL IM PRN (20:29)
[2021-12-07] MEDS ORDERED: *HR* LORazepam 1 MG TABLET PO PRN (20:29)
[2021-12-07] MEDS ORDERED: Gabapentin 100 MG CAPSULE PO ONE (20:35)
[2021-12-07] MEDS ORDERED: QUEtiapine Fumarate 25 MG TABLET PO PRN (20:39)
[2021-12-07 20:46] LABS: Influenza A PCR Negative (Negative); Influenza B PCR Negative (Negative); Resp. Syncytial Virus PCR Negative (Negative); SARS-CoV-2 by PCR (In House) Negative (Negative)
[2021-12-07] MEDS ORDERED: QUEtiapine Fumarate 100 MG TABLET PO ONE (21:00)
[2021-12-08] MEDS: Acetaminophen 325 MG TABLET PO PRN ×2 (00:01→16:32)
[2021-12-08] MEDS: hydrOXYzine pamoate 25 MG CAPSULE PO PRN ×2 (00:02→16:32)
[2021-12-08] MEDS ORDERED: Nicotine 21 MG PATCH.TD24 TD SCH (09:00)
[2021-12-08] MEDS: Nicotine 21 MG PATCH.TD24 TD SCH (09:02)
[2021-12-08] MEDS: Vitamin B Complex/Vit C/Vit E 1 EACH TABLET PO SCH (09:02)
[2021-12-08] MEDS: *HR* Buprenorphine HCl 8 MG TAB.SUBL SL SCH (16:30)
[2021-12-08] MEDS: Gabapentin 100 MG CAPSULE PO SCH ×2 (17:33→20:57)
[2021-12-08] MEDS: cephALEXin 500 MG CAPSULE PO SCH (20:43)
[2021-12-08] MEDS: QUEtiapine Fumarate 100 MG TABLET PO SCH (20:43)
[2021-12-08] MEDS: Baclofen 10 MG TABLET PO PRN (20:56)
[2021-12-08] MEDS: cloNIDine HCL 0.1 MG TABLET PO PRN (20:57)
[2021-12-08] MEDS: Ondansetron ODT 4 MG TAB.RAPDIS SL PRN (20:57)
[2021-12-09] MEDS: Gabapentin 100 MG CAPSULE PO SCH ×3 (09:44→20:47)
[2021-12-09] MEDS: Vitamin B Complex/Vit C/Vit E 1 EACH TABLET PO SCH (09:45)
[2021-12-09] MEDS: *HR* Buprenorphine HCl 8 MG TAB.SUBL SL SCH (09:45)
[2021-12-09] MEDS: cephALEXin 500 MG CAPSULE PO SCH ×2 (09:45→20:46)
[2021-12-09] MEDS: Nicotine 21 MG PATCH.TD24 TD SCH (09:45)
[2021-12-09] MEDS: Ondansetron ODT 4 MG TAB.RAPDIS SL PRN (19:23)
[2021-12-09] MEDS: Acetaminophen 325 MG TABLET PO PRN (19:23)
[2021-12-09] MEDS: hydrOXYzine pamoate 25 MG CAPSULE PO PRN (19:23)
[2021-12-09] MEDS ORDERED: *HR* Buprenorphine HCl 8 MG TAB.SUBL SL ONE (20:45)
[2021-12-09] MEDS: cloNIDine HCL 0.1 MG TABLET PO PRN (20:47)
[2021-12-09] MEDS: QUEtiapine Fumarate 100 MG TABLET PO SCH (20:47)
[2021-12-09] MEDS: Baclofen 10 MG TABLET PO PRN (20:47)
[2021-12-10] MEDS: Nicotine 21 MG PATCH.TD24 TD SCH (09:13)
[2021-12-10] MEDS: cephALEXin 500 MG CAPSULE PO SCH ×2 (09:14→20:27)
[2021-12-10] MEDS: *HR* Buprenorphine HCl 8 MG TAB.SUBL SL SCH ×2 (09:15→20:28)
[2021-12-10] MEDS: Vitamin B Complex/Vit C/Vit E 1 EACH TABLET PO SCH (09:15)
[2021-12-10] MEDS: Gabapentin 100 MG CAPSULE PO SCH ×2 (09:15→15:57)
[2021-12-10] MEDS ORDERED: Moderna Covid-19 Vaccine 100MCG/0.5mL IM ONE (12:00)
[2021-12-10] MEDS: hydrOXYzine pamoate 25 MG CAPSULE PO PRN (15:31)
[2021-12-10] MEDS: cloNIDine HCL 0.1 MG TABLET PO PRN (15:32)
[2021-12-10] MEDS: Baclofen 10 MG TABLET PO PRN (15:32)
[2021-12-10] MEDS: Nicotine 2 MG GUM BC SCH ×2 (19:02→20:28)
[2021-12-10] MEDS: Gabapentin 400 MG CAPSULE PO SCH (20:27)
[2021-12-10] MEDS: QUEtiapine Fumarate 100 MG TABLET PO SCH (20:28)
[2021-12-10] MEDS ORDERED: Neosporin OINT 15 GM TUBE TP SCH (21:00)
[2021-12-11] MEDS: Gabapentin 400 MG CAPSULE PO SCH (08:35)
[2021-12-11] MEDS: Vitamin B Complex/Vit C/Vit E 1 EACH TABLET PO SCH (08:35)
[2021-12-11] MEDS: *HR* Buprenorphine HCl 8 MG TAB.SUBL SL SCH (08:35)
[2021-12-11] MEDS: cephALEXin 500 MG CAPSULE PO SCH (08:35)
[2021-12-11] MEDS: Nicotine 2 MG GUM BC SCH ×2 (08:37)
[2021-12-11 09:11] VITALS: BP 138/87; PULSE 85; TEMP 98.4; O2SAT 100
== END 2021-12-11 08:50 | disposition home or self-care (01) | DRG 755 ==
LOC: EMEROOARM 14:07 → 1ANU 22:30
PROVIDERS: ADMIT Psychiatry & Neurology Forensic Psychiatry; ATTEND Psychiatry & Neurology Forensic Psychiatry